=== PATIENT | male | born 1950 | race Caucasian/White ===

== ENCOUNTER 2020-03-12 17:23 | Emergency (ER) | payer MEDICARE, SELFPAY ==
[2020-03-12 17:53] VITALS: BP 162/103; PULSE 72; RESP 14; TEMP 37.7; O2SAT 98; BMI 26.9
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
[2020-03-12] MEDS: morphine 4 mg/mL SDV 1 mL IVP ×3 (18:21→20:52)
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
[2020-03-12 19:32] VITALS: BP 171/86; PULSE 65; RESP 14; O2SAT 100
[2020-03-12 20:50] VITALS: BP 195/109; PULSE 71; RESP 14; O2SAT 96
== END 2020-03-12 21:19 | disposition short-term general hospital (02) ==
PROVIDERS: Emergency Provider Family Medicine; PCP Nurse Practitioner Family
DX: S00.81XA Abrasion of other part of head, initial encounter (principal); S72.002A Fracture of unspecified part of neck of left femur, initial encounter for closed fracture; S09.8XXA Other specified injuries of head, initial encounter; V19.9XXA Pedal cyclist (driver) (passenger) injured in unspecified traffic accident, initial encounter; Z87.891 Personal history of nicotine dependence
CPT/HCPCS: 12345; 70450; 70486; 72125; 74176; 96374; 96376; 99282; 99285; J2270

== ENCOUNTER → 2020-07-28 15:34 | Outpatient (BNVA) | payer MEDICARE, SELFPAY | PROVIDERS: PCP Nurse Practitioner Family; Visit Provider Nurse Practitioner Family | DX: Z11.59 Encounter for screening for other viral diseases (principal) | CPT/HCPCS: 87635 ==

== ENCOUNTER → 2020-08-16 10:23 | Outpatient (BNVA) | payer MEDICARE, SELFPAY | PROVIDERS: PCP Nurse Practitioner Family; Visit Provider Nurse Practitioner Family | DX: Z20.828 Contact with and (suspected) exposure to other viral communicable diseases (principal) | CPT/HCPCS: 87635 ==